=== PATIENT | female | born 1990 | race American Indian/Alaskan Native ===

== ENCOUNTER 2018-11-30 11:23 | Outpatient (CLI) | payer MEDICAID ==
[2018-11-30 12:23] LABS: Bacteria,Urine 1+ /HPF (Negative); Bilirubin,Urine NEG (Negative); Blood,Urine MOD (Negative); Color,Urine Yellow (Yellow); Mucus,Urine FEW /HPF; Protein,Urine <15 mg/dL mg/dL (Negative); Urobilinogen,Urine < 2.0 mg/dL (<2.0)
[2018-11-30 13:06] VITALS: BP 123/78
--- NOTE | 2018-11-30 14:05 | Ultrasound Report ---
ULTRASOUND BIOPHYSICAL PROFILE ULTRASOUND OB LIMITED INDICATION: well being TECHNIQUE: Transabdominal ultrasound imaging. COMPARISON: None FINDINGS: breathing movement = 2 Gross body movement = 2 tone = 2 Qualitative amniotic fluid volume = 2 Total biophysical score = 8/8 Amniotic fluid index is 14.0 cm. Presentation is cephalic. heart rate is 157 beats per minute. IMPRESSION: biophysical profile equals 8/8. Signer Name: Isacc Martinez Jr, MD Signed: 11/30/2018 2:00 PM Workstation Name: [id number]
== END 2018-11-30 13:36 | disposition home or self-care (01) ==
LOC: TRG 11:23
PROVIDERS: ATTEND Obstetrics & Gynecology
DX: O47.1 False labor at or after 37 completed weeks of gestation (principal); Z3A.39 39 weeks gestation of pregnancy
CPT/HCPCS: 59025; 76815; 76819; 81001

== ENCOUNTER 2018-11-30 20:41 | Inpatient (IN) | payer MEDICAID ==
--- NOTE | 2018-11-30 20:55 | History and Physical Report ---
History of Present Illness Date of examination: 11/30/18 Date of admission: 11/30/18 20:41 Chief complaint: Home delivery History of present illness: Pt is a 28yo BF EDC 12/05/18; EGA 39 2/7 weeks presents to L&D after delivering at home, after leaving L&D @ 1830 today. She received care at [facility], however records are not available. Past History Past Medical History: no pertinent history Past Surgical History: no surgical history Family/Genetic History: none Social history: no significant social history - Obstetrical History : 3 Medications and Allergies Allergies Allergy/AdvReac Type Severity Reaction Status Date / Time No Known Allergies Allergy Verified 09/14/18 16:14 Review of Systems All systems: negative - Vital Signs Vital signs: Vital Signs Pulse BP 82 115/78 11/30/18 20:44 11/30/18 20:44 Temp Pulse Resp BP Pulse Ox 82 115/78 11/30/18 20:44 11/30/18 20:44 - Physical Exam Breasts: Positive: deferred Cardiovascular: Regular rate Lungs: Positive: Clear to auscultation Abdomen: Positive: normal appearance Genitourinary (Female): Positive: normal external genitalia Uterus: Positive: enlarged Extremities: Positive: normal Results All other labs normal. Assessment and Plan - Patient Problems (1) (normal spontaneous vaginal delivery) Onset Date: 11/30/18 Current Visit: Yes Status: Acute Plan to address problem: A: S/P Home delivery with retained placenta P: Admit to L&D for delivery of placenta.
--- NOTE | 2018-11-30 20:56 | Procedure Note ---
OB Delivery Note - Delivery Date of Delivery: 11/30/18 Surgeon: DOREEN MONTANO (Home delivery) Estimated blood loss: 200cc - Vaginal Delivery presentation: vertex Intrapartum events: none Delivery induction: none Delivery augmentation: rupture of membranes Delivery monitor: none Route of delivery: Delivery placenta: spontaneous Delivery cord: 3 umbilical vessels Episiotomy: none Delivery laceration: none Anesthesia: none - Infant A at 1 minute: 7 at 5 minutes: 9 Infant Gender: Female (3664gms)
[2018-11-30 21:59] LABS: Hematocrit 32.7 % (30.3-42.9); Hemoglobin 10.9 gm/dl (10.1-14.3); Mean Corpuscular HGB Conc 33 % (30-34); Mean Corpuscular Volume 88 fl (79-97); Platelet Count 157 K/mm3 (140-440); Red Blood Count 3.72 M/mm3 (3.65-5.03); Red Cell Distribution Width 14.3 % (13.2-15.2)
[2018-11-30] MEDS ORDERED: PITOCin/NS 20 UNIT/1000ML DRIP 20,000 MILLIUNITS/1,000 ML BAG IV ONE (22:16)
[2018-11-30] MEDS ORDERED: NORCO 5/325 PO PRN (22:50)
[2018-11-30] MEDS ORDERED: PHENERGAN PO PRN (22:50)
[2018-11-30] MEDS ORDERED: DULCOLAX PR PRN (22:50)
[2018-11-30] MEDS ORDERED: TYLENOL PO PRN (22:50)
[2018-11-30] MEDS ORDERED: ZOFRAN IV PRN (22:50)
[2018-11-30] MEDS ORDERED: MILK OF MAGNESIA PO PRN (22:50)
[2018-11-30] MEDS ORDERED: BENADRYL PO PRN (22:50)
[2018-11-30] MEDS ORDERED: SODIUM CHLORIDE FLUSH SYRINGE 10 ML IV PRN (22:50)
[2018-11-30] MEDS ORDERED: PITOCin/NS 20 UNIT/1000ML DRIP 20 UNITS/1,000 ML BAG IV SCH (22:50)
[2018-11-30] MEDS ORDERED: LANSINOH TP PRN (22:50)
[2018-11-30] MEDS ORDERED: PHENERGAN PR PRN (22:50)
[2018-11-30] MEDS ORDERED: TUCKS PAD TP PRN (22:50)
[2018-11-30] MEDS: FEOSOL PO SCH (23:39)
[2018-11-30] MEDS: IBUPROFEN PO SCH (23:40)
[2018-11-30] MEDS: COLACE PO SCH (23:40)
[2018-12-01] MEDS: IBUPROFEN PO SCH ×3 (05:23→20:32)
[2018-12-01 09:48] LABS: Hematocrit 29.5 % (30.3-42.9); Hemoglobin 9.8 gm/dl (10.1-14.3)
--- NOTE | 2018-12-01 11:12 | Progress Note ---
Assessment and Plan A: PPD#1 s/p Stable Asymptomatic Anemia P: Routine PP care/orders Anticipate discharge home today Subjective - Subjective Date of service: 12/01/18 Principal diagnosis: PPD#1 s/p Patient reports: appetite normal, voiding normally, pain well controlled, flatus, ambulating normally [place]: doing well Objective - Vital Signs Latest vital signs: Vital Signs Temp Pulse Resp BP BP Pulse Ox 12/01/18 08:30 98.4 F 85 18 110/66 98 12/01/18 06:23 18 12/01/18 05:23 18 12/01/18 04:14 98.2 F 86 20 110/52 96 12/01/18 00:40 18 11/30/18 23:40 18 11/30/18 22:22 98.2 F 71 20 138/51 98 11/30/18 21:44 80 117/63 11/30/18 21:30 74 20 115/62 11/30/18 21:29 74 115/62 11/30/18 21:15 75 20 111/64 11/30/18 21:14 75 111/64 11/30/18 21:00 75 20 121/77 121/77 11/30/18 20:48 98.2 F 82 20 115/78 11/30/18 20:44 82 115/78 Intake and Output 11/30/18 12/01/18 12/01/18 23:59 07:59 15:59 Intake Total 370 240 Output Total 600 Balance -230 240 Intake: IV 10 Left Antecubital 10 Oral 360 240 Output: Urine 600 Void 600 Other: Total, Intake Amount 120 240 Total, Output Amount 600 # Voids Void 1 1 Weight 114.305 kg - Exam Breasts: Present: normal Cardiovascular: Present: Regular rate, Normal S1, Normal S2 Lungs: Present: Clear to auscultation, Normal air movement Abdomen: Present: normal appearance, soft, normal bowel sounds. Absent: distention Vulva: both: normal Uterus: Present: firm, fundal height at umbilicus Extremities: Present: normal Deep Tendon Reflex Grade: Normal +2 - Labs Labs: Abnormal lab results 11/30/18 12/01/18 Range/Units 21:40 09:07 WBC 12.0 H (4.5-11.0) K/mm3 Hgb 9.8 L (10.1-14.3) gm/dl Hct 29.5 L (30.3-42.9) %
--- NOTE | 2018-12-01 11:13 | Discharge Summary ---
Providers - Providers Date of Admission: 11/30/18 20:41 Date of discharge: 12/01/18 Attending physician: DIO STEEN MD Primary care physician: DIO STEEN MD Hospitalization Reason for admission: active labor, IUP at term Delivery: Episiotomy: none Laceration: none Other procedures: none complications: none Discharge diagnosis: IUP at term delivered Condition at discharge: Good Disposition: DC-01 TO HOME OR SELFCARE Plan - Provider Discharge Summary Activity: routine, no sex for 6 weeks, no heavy lifting 4 weeks, no strenuous exercise Diet: routine Instructions: routine Additional instructions: [] Smoking cessation referral if applicable(refer to patient education folder for contact #) [] Refer to [facility] Booklet Call your doctor immediately for: * Fever > 100.5 * Heavy vaginal bleeding ( >1 pad per hour) * Severe persistent headache * Shortness of breath * Reddened, hot, painful area to leg or breast * Drainage or odor from incision. * Keep incision clean and dry at all times and follow doctor's instructions regarding bathing/showering - Follow up plan Follow up: DIO STEEN MD [Primary Care Provider] - 6 Weeks
[2018-12-01] MEDS: FEOSOL PO SCH ×2 (13:05→23:05)
[2018-12-01] MEDS: PRENATAL VITAMIN PO SCH (13:06)
[2018-12-01] MEDS: COLACE PO SCH ×2 (13:06→23:05)
[2018-12-01] MEDS ORDERED: M-M-R II VACCINE SUB-Q ONE (20:56)
[2018-12-02] MEDS: IBUPROFEN PO SCH ×3 (00:17→06:38)
[2018-12-02] MEDS ORDERED: BOOSTRIX IM ONE (06:00)
[2018-12-02] MEDS: FEOSOL PO SCH (10:52)
[2018-12-02] MEDS: PRENATAL VITAMIN PO SCH (10:52)
[2018-12-02] MEDS: COLACE PO SCH (10:52)
[2018-12-02 11:14] VITALS: BP 130/67
== END 2018-12-02 11:50 | disposition home or self-care (01) | DRG 775 ==
LOC: LD 20:41 → OB 22:49
PROVIDERS: ADMIT Obstetrics & Gynecology; ATTEND Obstetrics & Gynecology
PROC: 10E0XZZ Delivery of Products of Conception, External Approach (ICD-10-PCS; principal; 2018-11-30)
PROC: 3E0234Z Introduction of Serum, Toxoid and Vaccine into Muscle, Percutaneous Approach (ICD-10-PCS; 2018-12-01)
DX: O90.81 Anemia of the puerperium (principal); Z3A.39 39 weeks gestation of pregnancy; Z37.0 Single live birth; Z23 Encounter for immunization
CPT/HCPCS: 36415; 59025; 76815; 76819; 81001; 85014; 85018; 85027; 86592; 86850; 86900; 86901; G0378; J2590